=== PATIENT | female | born 1955 | race Caucasian/White ===

== ENCOUNTER 2020-09-29 11:30 | Emergency (ER) | payer MEDICARE, MEDICAID, SELFPAY ==
--- NOTE | 2020-09-29 11:48 | ED_ITS ---
HPI - CPR General Chief Complaint: Cardiac Arrest/CPR Stated Complaint: cardiac arrest Time Seen by Provider: 09/29/20 11:47 Source: EMS and old records reviewed Mode of arrival: EMS Limitations: other (unresponsive) History of Present Illness HPI narrative: unknown downtime, EMS CPR 45 minutes, bhavin airway, BS 63, repeat epis, no shock advised asystole with EMS MD complaint: found unresponsive Onset (ago): unknown Timing confirmed by: caregiver Place: IN/SNF Bystander CPR performed: No AED applied by bystander/embedded linux engineer: Yes Shock advised: No Initial findings in the field: unresponsive, no respirations, no pulse and other rhythm (asystole) ROSC in the field: No Associated injuries: No Known history of: other (CHF, respiratory failure, COPD) Treatments prior to arrival: BMV, other airway device (Bhavin), chest compressions and epinephrine mgs # (multiple) Review of Systems Review of Systems: ROS unable to be obtained due to unresponsiveness PMFSH Past Medical History Source: nursing notes reviewed Medical History Bipolar 1 disorder CHF (congestive heart failure) Chronic respiratory failure CKD (chronic kidney disease) COPD (chronic obstructive pulmonary disease) Diabetes Schizoaffective disorder Social History Social History (Updated 09/29/20 @ 11:54 by Bridgett Kim DO) Housing: Skilled Nursing Smoking Status: Unknown if ever smoked Advance Directives: No Physical Exam Vital Signs: Appearance: Severe distress, unresponsive , ongoing CPR Eyes: Pupils fixed and dilated ENT: Pharynx normal. short neck, bhavin airway in place Neck: short neck CVS: no spontaneous pulse noted, no heart sounds, ongoing compressions Respiratory: no spontaneous respirations, bhavin airway, bagged by EMS Abdomen: Soft and obese Skin: Pale cool skin to touch Extremities: No lower extremity edema. Neuro: Unresponsive, no respone to painful stimuli Course Course Course Narrative: unknown downtime - prehospital CPR 45 minutes, in ED for 10 minutes without ROSC patient is DNI, BS on recheck > 200 EMS BS 63 - given prolonged downtime without ROSC resuscitative efforts held at 1140 Procedures Procedure Narrative Procedure Narrative: bedside ECHO 1140AM - apical substernal and parasternal views obtained, no organized cardiac activity noted MDM - Cardiac Arrest/CPR MDM Narrative Medical decision making narrative: 65 yo female from local [facility] prolonged downtime suspected with EMS CPR 45 minutes - no ROSC or shocks advised, she is DNI - supraglottic airway in place, at this time given epi, HCO3, dextrose and no response resuscitative efforts held, no concern for trauma or OD no indiciation for ME at this time Critical Care Time Critical Care Time Critical Care Time: Yes Total Critical Care Time: 10 Attestation: I attest to this time spent taking care of the patient Discharge Plan Discharge Clinical Impression: Cardiac arrest Patient Disposition:
[2020-09-29 12:17] LABS: Glucose, Whole Blood 227 mg/dL (60-115)
[2020-09-29 12:17] LABS: Glucose, Whole Blood 21 mg/dL (60-115)
--- NOTE | 2020-09-29 12:17 | PC.NURSE ---
[place] [facility] contacted
--- NOTE | 2020-09-29 12:31 | PC.NURSE ---
CALLED TO [facility], PUBLICIST ZAINAB SIERRA, AT [phone] MESSAGE LEFT
== END 2020-09-29 11:40 | disposition expired ==
PROVIDERS: Emergency Provider Emergency Medicine; PCP Internal Medicine
DX: I46.9 Cardiac arrest, cause unspecified (principal); Z79.899 Other long term (current) drug therapy
CPT/HCPCS: 82947; 99282; J0171